=== PATIENT | female | born 1950 ===

== ENCOUNTER 2018-05-15 23:58 | Observation (INO) | payer MEDICARE ==
[2018-05-16 00:28] VITALS: BMI 31.2
--- NOTE | 2018-05-16 01:11 | ED PDOC ---
Arrival/HPI - General Chief Complaint: Headache Time Seen by Provider: 05/16/18 00:16 Historian: Patient - History of Present Illness Narrative History of Present Illness (Text): 05/16/18 01:07 A 67 year old female, whose past medical history includes diabetes, hypertension and osteoporosis, presents to the emergency department complaining of generalized malaise,lower abdominal discomfort.Slight headache.No known fever. Patient states she is also having trouble sleeping and states her is currently in the hospital. Patient denies any visual disturbances, chills, shortness of breath, chest pain, diarrhea, nausea, vomiting, urinary symptoms, back pain, neck pain, headache, dizziness, or any other complaints. PMD: Dr. Trinh Time/Duration: Other (earlier today) Symptom Onset: Gradual Activities at Onset: Light Context: Home Past Medical History - Provider Review Nursing Documentation Reviewed: Yes - Infectious Disease Hx of Infectious Diseases: None - Cardiac Hx Cardiac Disorders: No - Pulmonary Hx Respiratory Disorders: No - Neurological Hx Neurological Disorder: No - HEENT Hx HEENT Disorder: No - Renal Hx Renal Disorder: No - Endocrine/Metabolic Hx Endocrine Disorders: Yes Hx Diabetes Mellitus Type 1: Yes - Hematological/Oncological Hx Blood Disorders: No - Integumentary Hx Dermatological Disorder: No - Musculoskeletal/Rheumatological Hx Musculoskeletal Disorders: Yes Hx Arthritis: Yes Hx Osteomyelitis: Yes - Gastrointestinal Hx Gastrointestinal Disorders: No - Genitourinary/Gynecological Hx Genitourinary Disorders: No - Psychiatric Hx Psychophysiologic Disorder: No Hx Substance Use: No Family/Social History - Physician Review Nursing Documentation Reviewed: Yes Family/Social History: No Known Family HX Smoking Status: Never Smoked Hx Alcohol Use: No Hx Substance Use: No Allergies/Home Meds Allergies/Adverse Reactions: Allergies No Known Allergies Allergy (Verified 05/16/18 00:38) Home Medications: Home Meds Medication Instructions Recorded Confirmed No Known Home Med 05/16/18 05/16/18 Review of Systems - Physician Review All systems were reviewed & negative as marked: Yes - Review of Systems Constitutional: Other (trouble sleeping). absent: Fevers, Night Sweats Eyes: absent: Vision Changes (no visual disturbances) Respiratory: absent: SOB Cardiovascular: absent: Chest Pain Gastrointestinal: Abdominal Pain (abdominal discomfort). absent: Diarrhea, Nausea, Vomiting Musculoskeletal: absent: Back Pain, Neck Pain Neurological: Headache. absent: Dizziness Physical Exam Vital Signs Reviewed: Yes Vital Signs Temp Pulse Resp BP Pulse Ox 05/16/18 00:28 98.1 F 76 18 144/86 98 Temperature: Afebrile Blood Pressure: Normal Pulse: Regular Respiratory Rate: Normal Appearance: Positive for: Well-Appearing, Non-Toxic, Comfortable Pain Distress: None Mental Status: Positive for: Alert and Oriented X 3 - Systems Exam Head: Present: Atraumatic, Normocephalic Pupils: Present: PERRL Extroacular Muscles: Present: EOMI Conjunctiva: Present: Normal Mouth: Present: Moist Mucous Membranes Neck: Present: Normal Range of Motion Respiratory/Chest: Present: Clear to Auscultation, Good Air Exchange. No: Respiratory Distress, Accessory Muscle Use Cardiovascular: Present: Regular Rate and Rhythm, Normal S1, S2. No: Murmurs Abdomen: Present: Tenderness (left lower abdomen), Normal Bowel Sounds. No: Distention, Peritoneal Signs, McBurney's Point Tender, Hernias Back: Present: Normal Inspection Upper Extremity: Present: Normal Inspection. No: Cyanosis, Edema Lower Extremity: Present: Normal Inspection. No: Edema Neurological: Present: GCS=15, CN II-XII Intact, Speech Normal, Motor Func Grossly Intact, Normal Sensory Function Skin: Present: Warm, Dry, Normal Color. No: Rashes Psychiatric: Present: Alert, Oriented x 3, Normal Insight, Normal Concentration Medical Decision Making ED Course and Treatment: 05/16/18 01:10 Impression: 67 year old female presents to the emergency room for generalized malaise,abdominal discomfort. Plan: -- EKG -- Cardiac ISO -- CMP -- Lipase -- CBC -- COAGs -- Chest X-ray -- Reassess and disposition Prior Visits: Notes and results from previous visits were reviewed. Progress Notes: 05/16/18 01:29 EKG: Ordered, reviewed, and independently interpreted the EKG. Rate : 72 BPM Rhythm : NSR Interpretation : Non specific T-wave changes. 05/16/18 03:28 Procedure: Chest X-ray Impression: No acute process. Reviewed by me. 05/16/18 03:55 Procedure: CT abdomen and pelvis with contrast Impression: Acute proximal sigmoid diverticulitis without perforation or abscess formation. Dictator: Dr. Jak Calhoun M.D. 05/16/18 05:[address] Moser who accepts the patient into his service for further observation and requests Dr. Lara on consult. - RAD Interpretation Radiology Orders: 05/16/18 00:51 CHEST PORTABLE [RAD] Stat - Scribe Statement The provider has reviewed the documentation as recorded by the Scribe Johana Eller All medical record entries made by the Scribe were at my direction and personally dictated by me. I have reviewed the chart and agree that the record accurately reflects my personal performance of the history, physical exam, medical decision making, and the department course for this patient. I have also personally directed, reviewed, and agree with the discharge instructions and disposition. Disposition/Present on Arrival - Present on Arrival Any Indicators Present on Arrival: No History of DVT/PE: No History of Uncontrolled Diabetes: No Urinary Catheter: No History of Decub. Ulcer: No History Surgical Site Infection Following: None - Disposition Have Diagnosis and Disposition been Completed?: Yes Diagnosis: Diverticulitis Disposition: HOSPITALIZED Disposition Time: 05:01 Patient Plan: Admission Patient Problems: Current Active Problems Problem Status Onset Diverticulitis Acute Condition: STABLE
[2018-05-16 01:59] LABS: HEMOGLOBIN 13.1 g/dL (12.0-16.0); MEAN CELL VOLUME 89.1 fl (80.0-105.0); MEAN CORPUSCULAR HEMOGLOBIN 29.8 pg (25.0-35.0); MEAN CORPUSCULAR HGB CONC 33.4 g/dl (31.0-37.0); MEAN PLATELET VOLUME 10.8 fl (7.0-11.0); RBC 4.4 10^6/uL (3.5-6.1); RED CELL DISTRIBUTION WIDTH 13.7 % (11.5-14.5); WHITE BLOOD COUNT 11.5 10^3/uL (4.5-11.0)
[2018-05-16 02:01] LABS: INR 1.06; PARTIAL THROMBOPLASTIN TIME 30.3 Seconds (25.1-36.5); PROTHROMBIN TIME 12.1 SECONDS (9.4-12.5)
[2018-05-16 02:03] LABS: ALB/GLOB RATIO 1.3 (1.1-1.8); ALBUMIN 4.3 g/dL (3.0-4.8); ALT/SGPT 32 U/L (7-56); AST/SGOT 25 U/L (14-36); BLOOD UREA NITROGEN 23 mg/dL (7-21); CALCIUM 9.5 mg/dL (8.4-10.5); GFR NON-AFRICAN AMERICAN > 60; LIPASE 101 U/L (23-300)
[2018-05-16 02:14] LABS: TROPONIN I < 0.01 ng/mL
[2018-05-16] MEDS ORDERED: Iohexol 350 MG/100 ML VIAL ONE (02:30)
[2018-05-16] MEDS ORDERED: cefTRIAXone 1 gm 1 GM/100 ML BAG IV STA (04:51)
[2018-05-16] MEDS ORDERED: metroNIDAZOLE IV 500 mg/100 ml 500 MG/100 ML BAG IVPB STA (04:52)
[2018-05-16] MEDS: Sodium Chloride 0.9% 1,000 ML IV SCH (05:10)
--- NOTE | 2018-05-16 08:45 | RAD ---
Date of service: 05/16/2018 PROCEDURE: CHEST RADIOGRAPH, 1 VIEW HISTORY: abdominal pain COMPARISON: None available. FINDINGS: LUNGS: The lungs are well inflated and clear. There is subsegmental atelectasis in the left lower lobe. PLEURA: No pneumothorax or pleural effusion. CARDIOVASCULAR: The heart is normal in size. No aortic atherosclerotic calcifications present. OSSEOUS STRUCTURES: Within normal limits for the patient's age. VISUALIZED UPPER ABDOMEN: Normal. OTHER FINDINGS: None. IMPRESSION: No active pulmonary disease.
--- NOTE | 2018-05-16 09:00 | CARD ---
APPROVED REPORT Date of service: 05/16/2018 EKG Measurement Heart [id number] <Conclusion> Normal sinus rhythm Nonspecific T wave abnormality LAD
--- NOTE | 2018-05-16 09:32 | CT ---
Date of service: 05/16/2018 PROCEDURE: CT Abdomen and Pelvis with contrast HISTORY: abdominal pain COMPARISON: None. TECHNIQUE: Contrast dose: 100 cc of Omni 350 Radiation dose: Total exam DLP = 878.29 mGy-cm. This CT exam was performed using one or more of the following dose reduction techniques: Automated exposure control, adjustment of the mA and/or kV according to patient size, and/or use of iterative reconstruction technique. FINDINGS: LOWER THORAX: Unremarkable. LIVER: Unremarkable. No gross lesion or ductal dilatation. GALLBLADDER AND BILE DUCTS: Unremarkable. PANCREAS: Unremarkable. No gross lesion or ductal dilatation. SPLEEN: Unremarkable. ADRENALS: Unremarkable. No mass. KIDNEYS AND URETERS: Unremarkable. No hydronephrosis. No solid mass. VASCULATURE: Unremarkable. No aortic aneurysm. No aortic atherosclerotic calcification or mural plaque present. BOWEL: There is mural thickening and mesenteric inflammation in the sigmoid colon consistent with acute diverticulitis. There is no evidence of abscess or free air. APPENDIX: Normal appendix. PERITONEUM: Unremarkable. No free fluid. No free air. LYMPH NODES: Unremarkable. No enlarged lymph nodes. BLADDER: Unremarkable. REPRODUCTIVE: Unremarkable. BONES: No acute fracture. OTHER FINDINGS: The report concurs with the preliminary [facility] report IMPRESSION: There is mural thickening and mesenteric inflammation in the sigmoid colon consistent with acute diverticulitis. There is no evidence of abscess or free air.
[2018-05-16] MEDS: metroNIDAZOLE IV 500 mg/100 ml 500 MG/100 ML BAG IVPB SCH ×2 (13:56→21:40)
[2018-05-16] MEDS: Promethazine 6.25 MG/5 ML CUP PO SCH ×2 (13:58→21:40)
--- NOTE | 2018-05-16 14:09 | CP.PCM.CON ---
History of Present Illness - History of Present Illness History of Present Illness: Gastroenterology Fellow/PGY6 Consult Note 67 year old female with PMH of Diabetes, HTN, and osteoporosis presenting with abdominal pain. Patient notes onset of progressive lower abdominal pain leading to ER presentation. Also admits to increased soft stool frequency. Associated subjective fever. Denies nausea, vomiting, hematemesis, constipation, melena, hematochezia, unintentional weight loss, sick contacts, or recent travel/antib iotics. Endorses prior EGD and colonoscopy in last five months to be normal. Family History- denies stomach cancer, colon cancer Social History- denies tobacco, alcohol, illicit drug use Surgical History- none Review of Systems - Review of Systems Review of Systems: 12-point review of systems negative except for as above Past Patient History - Infectious Disease Hx of Infectious Diseases: None - Past Social History Smoking Status: Never Smoked - CARDIAC Hx Cardiac Disorders: Yes Hx Hypertension: Yes - PULMONARY Hx Respiratory Disorders: No - NEUROLOGICAL Hx Neurological Disorder: No - HEENT Hx HEENT Problems: No - RENAL Hx Chronic Kidney Disease: No - ENDOCRINE/METABOLIC Hx Diabetes Mellitus Type 2: Yes - HEMATOLOGICAL/ONCOLOGICAL Hx Blood Disorders: No - INTEGUMENTARY Hx Dermatological Problems: No - MUSCULOSKELETAL/RHEUMATOLOGICAL Hx Musculoskeletal Disorders: Yes Hx Arthritis: Yes Hx Osteoarthritis: Yes - GASTROINTESTINAL Hx Gastrointestinal Disorders: No - GENITOURINARY/GYNECOLOGICAL Hx Genitourinary Disorders: No - PSYCHIATRIC Hx Psychophysiologic Disorder: No - SURGICAL HISTORY Hx Surgeries: No Meds Allergies/Adverse Reactions: Allergies Allergy/AdvReac Type Severity Reaction Status Date / Time No Known Allergies Allergy Verified 05/16/18 00:38 - Medications Medications: Current Medications Sodium Chloride (Sodium Chloride 0.9%) 1,000 mls @ 100 mls/hr IV .Q10H PENDING SALE TO [facility] Last Admin: 05/16/18 05:10 Dose: 100 mls/hr Metronidazole (Flagyl) 500 mg in 100 mls @ 100 mls/hr IVPB Q8 PENDING SALE TO [facility]; Protocol Last Admin: 05/16/18 13:56 Dose: 100 mls/hr Ceftriaxone Sodium (Rocephin 1 Gram Ivpb) 1 gm in 100 mls @ 100 mls/hr IVPB DAILY PENDING SALE TO [facility]; Protocol Promethazine HCl (Phenergan Syrup) 6.25 mg PO BID PENDING SALE TO [facility] Last Admin: 05/16/18 13:58 Dose: 6.25 mg Physical Exam - Constitutional Appears: Non-toxic, No Acute Distress - Head Exam Head Exam: ATRAUMATIC, NORMOCEPHALIC - Eye Exam Eye Exam: EOMI, PERRL. absent: Scleral icterus Pupil Exam: PERRL. absent: Miosis, Mydriatic - ENT Exam ENT Exam: Mucous Membranes Moist, Normal Oropharynx - Neck Exam Neck exam: Positive for: Full Rom, Normal Inspection - Respiratory Exam Respiratory Exam: Clear to Auscultation Bilateral. absent: Rales, Rhonchi, Wheezes - Cardiovascular Exam Cardiovascular Exam: RRR, +S1, +S2. absent: Gallop, Rubs - GI/Abdominal Exam GI & Abdominal Exam: Normal Bowel Sounds, Soft, Tenderness. absent: Distended, Firm, Guarding, Organomegaly, Rebound, Rigid Additional comments: B/L LQ tenderness to palpation - Extremities Exam Extremities exam: Positive for: normal inspection. Negative for: pedal edema - Neurological Exam Neurological exam: Alert - Psychiatric Exam Psychiatric exam: Normal Affect, Normal Mood - Skin Skin Exam: Dry, Intact, Normal Color, Warm Results - Vital Signs Recent Vital Signs: Last Vital Signs Temp 98.3 F 05/16/18 08:37 Pulse 74 05/16/18 08:37 Resp 20 05/16/18 08:37 BP 121/71 05/16/18 08:37 Pulse Ox 94 L 05/16/18 08:37 - Labs Result Diagrams: 05/16/18 01:22 05/16/18 01:22 Labs: Laboratory Results - last 24 hr 05/16/18 05/16/18 05/16/18 01:22 01:22 01:22 WBC 11.5 H RBC 4.40 Hgb 13.1 Hct 39.2 MCV 89.1 MCH 29.8 MCHC 33.4 RDW 13.7 Plt Count 174 MPV 10.8 PT 12.1 INR 1.06 APTT 30.3 Sodium 138 Potassium 4.2 Chloride 102 Carbon Dioxide 26 Anion Gap 14 BUN 23 H Creatinine 0.6 L Est GFR ( Amer) > 60 Est GFR (Non-Af Amer) > 60 POC Glucose (mg/dL) Random Glucose 219 H Calcium 9.5 Total Bilirubin 0.9 AST 25 ALT 32 Alkaline Phosphatase 106 Lactate Dehydrogenase 450 Total Creatine Kinase 91 Troponin I < 0.01 Total Protein 7.6 Albumin 4.3 Globulin 3.3 Albumin/Globulin Ratio 1.3 Lipase 101 05/16/18 05:47 WBC RBC Hgb Hct MCV MCH MCHC RDW Plt Count MPV PT INR APTT Sodium Potassium Chloride Carbon Dioxide Anion Gap BUN Creatinine Est GFR ( Amer) Est GFR (Non-Af Amer) POC Glucose (mg/dL) 120 H Random Glucose Calcium Total Bilirubin AST ALT Alkaline Phosphatase Lactate Dehydrogenase Total Creatine Kinase Troponin I Total Protein Albumin Globulin Albumin/Globulin Ratio Lipase Assessment & Plan - Assessment and Plan (Free Text) Assessment: 67 year old female with PMH of Diabetes, HTN, and osteoporosis presenting with abdominal pain. Active treatment of uncomoplicated sigmoid diverticulitis noted on CT A/P IV contrast. Endorses prior EGD and colonoscopy in last five months to be normal. Plan: -ordered Cdiff, stool culture, O&P -on ceftriaxone and flagyl -liquid diet, advance as tolerated -will require 10-14 day antibiotic course -endorses recent colonoscopy in last 6 months with poor prep -will benefit from outpatient follow up with top closer for re- evaluation and repeat colonoscopy in 6-8 weeks -will follow clinical course
--- NOTE | 2018-05-16 15:45 | CP.PCM.HP ---
<Shoaib Deluna - Last Filed: 05/16/18 15:13> History of Present Illness - History of Present Illness History of Present Illness: H&P for Dr. Moser Service CC: Lower abdominal pain This is a 67 yo F with PMH of DM-1, HTN, osteoporosis, and arthritis who presented with complaint of worsening malaise and lower abdominal pain x2-3 days. As per patient, patient worsening without acute exacerbating factor over the last 2-3 days, and she has noticed increased frequency and softer stools which she likens in consistency to phlegm. Denies melena, bright red blood per rectum, emesis, fevers, chills, or shortness of breath. Does admit to nausea and decreased appetite, but has been able to tolerate PO intake. Additionally complains of headache, and admits to increased stress, as her is currently hospitalized (here at [facility] [place] At time of exam, patient is resting comfortably in bed, talking on a cell phone, not in any acute distress. Of note, in the ED, CT abd/pelvis was obtained that was notable for mural thickening and mesenteric inflammation suggestive of acute sigmoid diverticulitis, without evidence of abscess or perforation. 12 system ROS reviewed and negative except as above. PMH: as above PSH: denies Fam Hx: HTN Soc Hx: Denies tobacco, alcohol, illicits, IVDA PMD: Dr. Trinh Present on Admission - Present on Admission Any Indicators Present on Admission: No History of DVT/PE: No History of Uncontrolled Diabetes: No Urinary Catheter: No Review of Systems - Review of Systems All systems: reviewed and no additional remarkable complaints except (as per HPI) Past Patient History - Infectious Disease Hx of Infectious Diseases: None - Past Social History Smoking Status: Never Smoked - CARDIAC Hx Cardiac Disorders: Yes Hx Hypertension: Yes - PULMONARY Hx Respiratory Disorders: No - NEUROLOGICAL Hx Neurological Disorder: No - HEENT Hx HEENT Problems: No - RENAL Hx Chronic Kidney Disease: No - ENDOCRINE/METABOLIC Hx Diabetes Mellitus Type 2: Yes - HEMATOLOGICAL/ONCOLOGICAL Hx Blood Disorders: No - INTEGUMENTARY Hx Dermatological Problems: No - MUSCULOSKELETAL/RHEUMATOLOGICAL Hx Musculoskeletal Disorders: Yes Hx Arthritis: Yes Hx Osteoarthritis: Yes - GASTROINTESTINAL Hx Gastrointestinal Disorders: No - GENITOURINARY/GYNECOLOGICAL Hx Genitourinary Disorders: No - PSYCHIATRIC Hx Psychophysiologic Disorder: No - SURGICAL HISTORY Hx Surgeries: No Meds Allergies/Adverse Reactions: Allergies Allergy/AdvReac Type Severity Reaction Status Date / Time No Known Allergies Allergy Verified 05/16/18 00:38 Physical Exam - Constitutional Appears: Non-toxic, No Acute Distress - Head Exam Head Exam: ATRAUMATIC, NORMAL INSPECTION, NORMOCEPHALIC - Eye Exam Eye Exam: EOMI, Normal appearance. absent: Conjunctival injection, Scleral icterus Pupil Exam: absent: Irregular, Unequal - ENT Exam ENT Exam: Mucous Membranes Dry - Neck Exam Neck exam: Positive for: Full Rom, Normal Inspection. Negative for: Lymphadenopathy - Respiratory Exam Respiratory Exam: Clear to Auscultation Bilateral, NORMAL BREATHING PATTERN. absent: Accessory Muscle Use, Chest Wall Tenderness, Decreased Breath Sounds, Rales, Rhonchi, Wheezes - Cardiovascular Exam Cardiovascular Exam: REGULAR RHYTHM, RRR, +S1, +S2. absent: Bradycardia, Tachycardia, Irregular Rhythm, JVD, +S4 - GI/Abdominal Exam GI & Abdominal Exam: Normal Bowel Sounds, Soft, Tenderness (diffusely tender to palpation in all quadrants, tenderness in lower quadrants > upper quadrants, no CVA tenderness). absent: Diminished Bowel Sounds, Distended, Firm, Hyperactive Bowel Sounds, Hypoactive Bowel Sounds, Rigid Additional comments: Reports improvement in her pain by laying in left lateral recumbent position - Extremities Exam Extremities exam: Positive for: normal inspection, pedal pulses present. Negative for: calf tenderness, pedal edema - Back Exam Back exam: absent: CVA tenderness (L), CVA tenderness (R) - Neurological Exam Additional comments: awake and alert, moving all extremities spontaneously, following all commands appropriately - Psychiatric Exam Psychiatric exam: Normal Affect, Normal Mood - Skin Skin Exam: Dry, Intact, Normal Color, Warm Results - Vital Signs Recent Vital Signs: Last Vital Signs Temp 98.3 F 05/16/18 08:37 Pulse 74 05/16/18 08:37 Resp 20 05/16/18 08:37 BP 121/71 05/16/18 08:37 Pulse Ox 94 L 05/16/18 08:37 - Labs Result Diagrams: 05/16/18 01:22 05/16/18 01:22 Labs: Laboratory Results - last 24 hr 05/16/18 05/16/18 05/16/18 01:22 01:22 01:22 WBC 11.5 H RBC 4.40 Hgb 13.1 Hct 39.2 MCV 89.1 MCH 29.8 MCHC 33.4 RDW 13.7 Plt Count 174 MPV 10.8 PT 12.1 INR 1.06 APTT 30.3 Sodium 138 Potassium 4.2 Chloride 102 Carbon Dioxide 26 Anion Gap 14 BUN 23 H Creatinine 0.6 L Est GFR ( Amer) > 60 Est GFR (Non-Af Amer) > 60 POC Glucose (mg/dL) Random Glucose 219 H Calcium 9.5 Total Bilirubin 0.9 AST 25 ALT 32 Alkaline Phosphatase 106 Lactate Dehydrogenase 450 Total Creatine Kinase 91 Troponin I < 0.01 Total Protein 7.6 Albumin 4.3 Globulin 3.3 Albumin/Globulin Ratio 1.3 Lipase 101 05/16/18 05:47 WBC RBC Hgb Hct MCV MCH MCHC RDW Plt Count MPV PT INR APTT Sodium Potassium Chloride Carbon Dioxide Anion Gap BUN Creatinine Est GFR ( Amer) Est GFR (Non-Af Amer) POC Glucose (mg/dL) 120 H Random Glucose Calcium Total Bilirubin AST ALT Alkaline Phosphatase Lactate Dehydrogenase Total Creatine Kinase Troponin I Total Protein Albumin Globulin Albumin/Globulin Ratio Lipase Assessment & Plan - Assessment and Plan (Free Text) Assessment: This is a 67 yo F with PMH of DM-1, HTN, osteoporosis, and arthritis who presented with complaint of worsening malaise and lower abdominal pain x2-3 days. Admitted with concern for acute sigmoid diverticulitis. Plan: 1) Generalized abd pain -collitis vs enteritis vs diverticulitis possibly an anxiety component given stress with hospitalized -CT Abd/pelvis notable for acute sigmoid diverticulitis without signs of abscess or perforation -Started on IV Flagyl and Rocephin by ED, will continue IV on floors and convert to PO flagyl and cipro prior to discharge -GI consulted, appreciate their recs -mild leukocytosis without febrile temps; blood cultures obtained, pending results, f/u -Tylenol/Percocet PRN for mild/moderate pain, Promethazine for N/V ppx -Will trial on clear liquid diet, if tolerates advance as tolerated -Hold home crestor for now -NS 100cc/hr to make up for presumed fluid deficit given poor PO intake and dry mucous membranes on exam 2) HTN -currently normotensive, will hold home antiHTN meds at this time 3) Reported hx DM-1 -no home insulins listed in home medications -will start low-dose sliding scale for coverage and fingersticks ACHS will f/u with patient's outpatient pharmacy to confirm home meds Dispo: Med-surg, pending GI recs, pending advancement of diet as tolerated, possible d/c tomorrow FEN: Liquid diet Access: Peripheral IV Consults: GI Ppx: Protonix for GI, SCDs for DVT Patient reviewed and discussed with attending, Dr. Moser <Black Moser S - Last Filed: 05/16/18 21:23> Results - Vital Signs Recent Vital Signs: Last Vital Signs Temp 98.3 F 05/16/18 16:39 Pulse 65 05/16/18 16:39 Resp 20 05/16/18 16:39 BP 118/62 05/16/18 16:39 Pulse Ox 96 05/16/18 16:39 - Labs Result Diagrams: 05/16/18 01:22 05/16/18 01:22 Labs: Laboratory Results - last 24 hr 05/16/18 05/16/18 05/16/18 01:22 01:22 01:22 WBC 11.5 H RBC 4.40 Hgb 13.1 Hct 39.2 MCV 89.1 MCH 29.8 MCHC 33.4 RDW 13.7 Plt Count 174 MPV 10.8 PT 12.1 INR 1.06 APTT 30.3 Sodium 138 Potassium 4.2 Chloride 102 Carbon Dioxide 26 Anion Gap 14 BUN 23 H Creatinine 0.6 L Est GFR ( Amer) > 60 Est GFR (Non-Af Amer) > 60 POC Glucose (mg/dL) Random Glucose 219 H Calcium 9.5 Total Bilirubin 0.9 AST 25 ALT 32 Alkaline Phosphatase 106 Lactate Dehydrogenase 450 Total Creatine Kinase 91 Troponin I < 0.01 Total Protein 7.6 Albumin 4.3 Globulin 3.3 Albumin/Globulin Ratio 1.3 Lipase 101 05/16/18 05:47 WBC RBC Hgb Hct MCV MCH MCHC RDW Plt Count MPV PT INR APTT Sodium Potassium Chloride Carbon Dioxide Anion Gap BUN Creatinine Est GFR ( Amer) Est GFR (Non-Af Amer) POC Glucose (mg/dL) 120 H Random Glucose Calcium Total Bilirubin AST ALT Alkaline Phosphatase Lactate Dehydrogenase Total Creatine Kinase Troponin I Total Protein Albumin Globulin Albumin/Globulin Ratio Lipase Assessment & Plan - Assessment and Plan (Free Text) Plan: Pt seen and examined. I have reviewed the note of the medical insurance clerk and agree with it. I have discussed the assessment and plan with the resident. I have reviewed the patient's labs and medications. She has acute diverticulits. She is on Flagyl and Rocephin. GI will evaluate. Pain controlled on Tylenol and Percocet. Continue with IVF.
[2018-05-17] MEDS: metroNIDAZOLE IV 500 mg/100 ml 500 MG/100 ML BAG IVPB SCH (05:20)
[2018-05-17] MEDS: Sodium Chloride 0.9% 1,000 ML IV SCH (05:21)
[2018-05-17] MEDS ORDERED: Oxycodone/Acetaminophen 5/325 mg Tab PO PRN (07:05)
[2018-05-17 07:36] LABS: BASO # 0.01 K/mm3 (0.0-2.0); BASO % 0.1 % (0.0-3.0); EOS # 0.1 (0.0-0.7); EOS % 0.7 % (1.5-5.0); GRAN # 6.9 (1.4-6.5); GRAN % 65.7 % (50.0-68.0); HEMOGLOBIN 11.9 g/dL (12.0-16.0); LYMPH # 2.9 (1.2-3.4); LYMPH % 27.2 % (22.0-35.0); MEAN CELL VOLUME 89.8 fl (80.0-105.0); MEAN CORPUSCULAR HEMOGLOBIN 30.4 pg (25.0-35.0); MEAN CORPUSCULAR HGB CONC 33.9 g/dl (31.0-37.0); MEAN PLATELET VOLUME 10.6 fl (7.0-11.0); MONO # 0.7 (0.1-0.6); MONO % 6.3 % (1.0-6.0); RBC 3.91 10^6/uL (3.5-6.1); RED CELL DISTRIBUTION WIDTH 14.1 % (11.5-14.5); WHITE BLOOD COUNT 10.5 10^3/uL (4.5-11.0)
[2018-05-17 07:49] LABS: ALB/GLOB RATIO 1.1 (1.1-1.8); ALBUMIN 3.2 g/dL (3.0-4.8); ALT/SGPT 28 U/L (7-56); AST/SGOT 17 U/L (14-36); BLOOD UREA NITROGEN 11 mg/dL (7-21); CALCIUM 8.3 mg/dL (8.4-10.5); GFR NON-AFRICAN AMERICAN > 60
[2018-05-17 08:32] VITALS: BP 121/75; PULSE 60; RESP 19; TEMP 98.1; O2SAT 95
[2018-05-17] MEDS ORDERED: cefTRIAXone 1 gm 1 GM/100 ML BAG IVPB SCH (10:00)
[2018-05-17] MEDS: Promethazine 6.25 MG/5 ML CUP PO SCH (11:13)
--- NOTE | 2018-05-17 12:00 | CP.PCM.PN ---
<Catrachita Berkowitz - Last Filed: 05/17/18 11:57> Subjective - Date & Time of Evaluation Date of Evaluation: 05/17/18 Time of Evaluation: 11:57 - Subjective Subjective: Gastroenterology Fellow/PGY6 Progress Note Patient notes improving abdominal pain. Tolerating liquid diet. Admits to multiple soft stools yesterday. A 12-point review of systems negative except for as above. Objective - Vital Signs/Intake and Output Vital Signs (last 24 hours): Temp Pulse Resp BP Pulse Ox 98.1 F 60 19 121/75 95 05/17/18 08:31 05/17/18 08:31 05/17/18 08:31 05/17/18 08:31 05/17/18 08:31 Intake and Output: 05/17/18 05/17/18 06:59 18:59 Intake Total 840 1200 Balance 840 1200 - Medications Medications: Current Medications Acetaminophen (Tylenol 325mg Tab) 650 mg PO Q6H PRN PRN Reason: Pain, moderate (4-7) Last Admin: 05/16/18 22:23 Dose: 650 mg Metronidazole (Flagyl) 500 mg in 100 mls @ 100 mls/hr IVPB Q8 [facility]ASMY[facility]; Protocol Last Admin: 05/17/18 05:20 Dose: 100 mls/hr Ceftriaxone Sodium (Rocephin 1 Gram Ivpb) 1 gm in 100 mls @ 100 mls/hr IVPB DAILY [facility]; Protocol Oxycodone/Acetaminophen (Percocet 5/325 Mg Tab) 1 tab PO Q6H PRN PRN Reason: Pain, severe (8-10) Stop: 05/20/18 07:06 Pantoprazole Sodium (Protonix Inj) 40 mg IVP DAILY [facility] Last Admin: 05/17/18 11:13 Dose: 40 mg Promethazine HCl (Phenergan Syrup) 6.25 mg PO BID [facility] Last Admin: 05/17/18 11:13 Dose: 6.25 mg - Labs Labs: 05/17/18 07:15 05/17/18 07:15 PT 12.1 SECONDS (9.4-12.5) 05/16/18 01:22 INR 1.06 05/16/18 01:22 APTT 30.3 Seconds (25.1-36.5) 05/16/18 01:22 - Constitutional Appears: Non-toxic, No Acute Distress - Head Exam Head Exam: ATRAUMATIC, NORMOCEPHALIC - Eye Exam Eye Exam: EOMI, PERRL. absent: Scleral icterus Pupil Exam: PERRL. absent: Miosis, Mydriatic - ENT Exam ENT Exam: Mucous Membranes Moist, Normal Oropharynx - Neck Exam Neck Exam: Full ROM, Normal Inspection - Respiratory Exam Respiratory Exam: Clear to Ausculation Bilateral. absent: Rales, Rhonchi, Wheezes - Cardiovascular Exam Cardiovascular Exam: RRR, +S1, +S2. absent: Gallop, Rubs - GI/Abdominal Exam GI & Abdominal Exam: Soft, Tenderness, Normal Bowel Sounds. absent: Distended, Firm, Guarding, Rigid, Organomegaly, Rebound Additional comments: mild B/L LQ discomfort to palpation - Extremities Exam Extremities Exam: Normal Inspection. absent: Pedal Edema - Neurological Exam Neurological Exam: Alert, Awake - Psychiatric Exam Psychiatric exam: Normal Affect, Normal Mood - Skin Skin Exam: Dry, Intact, Normal Color, Warm Assessment and Plan - Assessment and Plan (Free Text) Assessment: 67 year old female with PMH of Diabetes, HTN, and osteoporosis presenting with abdominal pain. Active treatment of uncomplicated sigmoid diverticulitis noted on CT A/P IV contrast. Endorses prior EGD and colonoscopy in last five months to be normal. Plan: -Cdiff negative -diet advanced, tolerated solid foods -will require 10-14 day antibiotic course -endorses recent colonoscopy in last 6 months with poor prep <Jane,Kovil V - Last Filed: 05/18/18 00:03> Objective - Vital Signs/Intake and Output Vital Signs (last 24 hours): Temp Pulse Resp BP Pulse Ox 98.1 F 60 19 121/75 95 05/17/18 08:31 05/17/18 08:31 05/17/18 08:31 05/17/18 08:31 05/17/18 08:31 Intake and Output: 05/17/18 05/18/18 18:59 06:59 Intake Total 1200 Balance 1200 - Labs Labs: 05/17/18 07:15 05/17/18 07:15 PT 12.1 SECONDS (9.4-12.5) 05/16/18 01:22 INR 1.06 05/16/18 01:22 APTT 30.3 Seconds (25.1-36.5) 05/16/18 01:22 Attending/Attestation - Attestation I have personally seen and examined this patient.: Yes I have fully participated in the care of the patient.: Yes I have reviewed all pertinent clinical information, including history, physical exam and plan: Yes Notes (Text): This is an addendum to GI progress report dictated by the GI Fellow.The patient was seen and examined earlier. Medical records, lab studies, imagings were re viewed. Last 24 hours events reviewed. Agreed with the above treatment plan as outlined in GI Fellow 's notes with the addition of the following 05/18/18 00:03
--- NOTE | 2018-05-17 13:01 | CP.PCM.DIS ---
<Shoaib Deluna - Last Filed: 05/17/18 14:54> Provider - Provider Date of Admission: 05/16/18 05:01 Attending physician: Black Moser MD Primary care physician: Saadia Trinh DO Consults: GI: Jane Time Spent in preparation of Discharge (in minutes): 35 Diagnosis - Discharge Diagnosis (1) Diverticulitis Status: Acute Priority: High (2) Diabetes type I Status: Chronic Priority: Medium (3) HTN (hypertension) Status: Chronic Priority: Medium (4) Osteoporosis Status: Chronic Priority: Medium Hospital Course - Lab Results Lab Results: Micro Results 05/17/18 00:50 Stool C. difficile Antigen & Toxins A,B - Final 05/16/18 05:20 Blood Blood Culture - Preliminary NO GROWTH AFTER 24 HOURS 05/16/18 04:53 Blood Blood Culture - Preliminary NO GROWTH AFTER 24 HOURS Most Recent Lab Values WBC 10.5 10^3/uL (4.5-11.0) 05/17/18 07:15 RBC 3.91 10^6/uL (3.5-6.1) 05/17/18 07:15 Hgb 11.9 g/dL (12.0-16.0) L 05/17/18 07:15 Hct 35.1 % (36.0-48.0) L 05/17/18 07:15 MCV 89.8 fl (80.0-105.0) 05/17/18 07:15 MCH 30.4 pg (25.0-35.0) 05/17/18 07:15 MCHC 33.9 g/dl (31.0-37.0) 05/17/18 07:15 RDW 14.1 % (11.5-14.5) 05/17/18 07:15 Plt Count 146 10^3/uL (120.0-450.0) 05/17/18 07:15 MPV 10.6 fl (7.0-11.0) 05/17/18 07:15 Gran % 65.7 % (50.0-68.0) 05/17/18 07:15 Lymph % (Auto) 27.2 % (22.0-35.0) 05/17/18 07:15 [place] % (Auto) 6.3 % (1.0-6.0) H 05/17/18 07:15 Eos % (Auto) 0.7 % (1.5-5.0) L 05/17/18 07:15 Baso % (Auto) 0.1 % (0.0-3.0) 05/17/18 07:15 Gran # 6.90 (1.4-6.5) H 05/17/18 07:15 Lymph # (Auto) 2.9 (1.2-3.4) 05/17/18 07:15 [place] # (Auto) 0.7 (0.1-0.6) H 05/17/18 07:15 Eos # (Auto) 0.1 (0.0-0.7) 05/17/18 07:15 Baso # (Auto) 0.01 K/mm3 (0.0-2.0) 05/17/18 07:15 PT 12.1 SECONDS (9.4-12.5) 05/16/18 01:22 INR 1.06 05/16/18 01:22 APTT 30.3 Seconds (25.1-36.5) 05/16/18 01:22 Sodium 140 mmol/L (132-148) 05/17/18 07:15 Potassium 3.9 mmol/L (3.6-5.0) 05/17/18 07:15 Chloride 108 mmol/L (98-107) H 05/17/18 07:15 Carbon Dioxide 27 mmol/L (21-33) 05/17/18 07:15 Anion Gap 9 (10-20) L 05/17/18 07:15 BUN 11 mg/dL (7-21) 05/17/18 07:15 Creatinine 0.7 mg/dl (0.7-1.2) 05/17/18 07:15 Est GFR ( Amer) > 60 05/17/18 07:15 Est GFR (Non-Af Amer) > 60 05/17/18 07:15 POC Glucose (mg/dL) 120 mg/dL (65-110) H 05/16/18 05:47 Random Glucose 143 mg/dL (70-110) H 05/17/18 07:15 Calcium 8.3 mg/dL (8.4-10.5) L 05/17/18 07:15 Total Bilirubin 0.9 mg/dL (0.2-1.3) 05/17/18 07:15 AST 17 U/L (14-36) 05/17/18 07:15 ALT 28 U/L (7-56) 05/17/18 07:15 Alkaline Phosphatase 74 U/L (38-126) 05/17/18 07:15 Lactate Dehydrogenase 450 U/L (333-699) 05/16/18 01:22 Total Creatine Kinase 91 U/L (35-230) 05/16/18 01:22 Troponin I < 0.01 ng/mL 05/16/18 01:22 Total Protein 6.2 g/dL (5.8-8.3) 05/17/18 07:15 Albumin 3.2 g/dL (3.0-4.8) 05/17/18 07:15 Globulin 3.0 gm/dL 05/17/18 07:15 Albumin/Globulin Ratio 1.1 (1.1-1.8) 05/17/18 07:15 Lipase 101 U/L (23-300) 05/16/18 01:22 - Hospital Course Hospital Course: Discharge Summary for Dr. Moser Service This is a 67 yo F with PMH of DM-1, HTN, osteoporosis, and arthritis who presented with complaint of worsening malaise and lower abdominal pain x2-3 days. Admitted with concern for acute sigmoid diverticulitis. While here, the patient was also seen by GI. As per GI, f/u stool studies, C. diff, and Ova & Parasites testing; 10-14 days of antibiotics and follow up with GI as outpatient in 6-8 weeks to obtain colonoscopy. Today, patient is resting comfortably in bed. Denies acute or diffuse abdominal pain, but still has some tenderness to palpation lateral to the left quadrants. Denies nausea or vomiting, and reports last bowel movement was normal. Denies dysuria or diarrhea, denies melena or bright red blood per rectum. Patient was given a prescription for Flagyl and Augmentin for 8 days, to complete a total antibiotic course of 10 days. She was also instructed to resume her home medications as prescribed, to follow up with Dr. Moser within 1 week of discharge, and to follow up with GI as explained. She expressed understanding and agreement. Patient was then discharged to home. Reviewed and discussed with attending, Dr. Moser. Discharge Exam - Head Exam Head Exam: ATRAUMATIC, NORMOCEPHALIC - Additional Findings Additional findings: - Constitutional Appears: Non-toxic, No Acute Distress - Head Exam Head Exam: ATRAUMATIC, NORMAL INSPECTION, NORMOCEPHALIC - Eye Exam Eye Exam: EOMI, Normal appearance. absent: Conjunctival injection, Scleral icterus Pupil Exam: absent: Irregular, Unequal - ENT Exam ENT Exam: Mucous Membranes Moist - Neck Exam Neck exam: Positive for: Full Rom, Normal Inspection. Negative for: Lymphadenopathy - Respiratory Exam Respiratory Exam: Clear to Auscultation Bilateral, NORMAL BREATHING PATTERN. absent: Accessory Muscle Use, Chest Wall Tenderness, Decreased Breath Sounds, Rales, Rhonchi, Wheezes - Cardiovascular Exam Cardiovascular Exam: REGULAR RHYTHM, RRR, +S1, +S2. absent: Bradycardia, Tachycardia, Irregular Rhythm, JVD, +S4 - GI/Abdominal Exam GI & Abdominal Exam: Normal Bowel Sounds, Soft, Tenderness (tenderness to left flank, improved compared to yesterday). absent: Diminished Bowel Sounds, Distended, Firm, Hyperactive Bowel Sounds, Hypoactive Bowel Sounds, Rigid - Extremities Exam Extremities exam: Positive for: normal inspection, pedal pulses present. Negative for: calf tenderness, pedal edema - Back Exam Back exam: absent: CVA tenderness (L), CVA tenderness (R) - Neurological Exam awake and alert, moving all extremities spontaneously, following all commands appropriately - Psychiatric Exam Psychiatric exam: Normal Affect, Normal Mood - Skin Skin Exam: Dry, Intact, Normal Color, Warm Discharge Plan - Discharge Medications Prescriptions: Amoxicillin/Clavulanate [Augmentin 875 MG-125 MG] 1 tab PO BID #16 tab Metronidazole [Flagyl] 500 mg PO QID #32 tab - Follow Up Plan Condition: STABLE Disposition: HOME/ ROUTINE Instructions: Diverticulitis (DC), Diverticulitis Additional Instructions: PLEASE FOLLOW UP WITH DR MOSER IN 1 WEEK. TAKE ALL MEDICATIONS PRESCRIBED. Referrals: Black Moser MD [Staff Provider] - Palak Lara MD [Medical Doctor] - <Black Moser - Last Filed: 05/17/18 15:56> Provider - Provider Date of Admission: 05/16/18 05:01 Attending physician: Black Moser MD Primary care physician: Saadia Paniagua [facility] Course - Lab Results Lab Results: Micro Results 05/17/18 00:50 Stool C. difficile Antigen & Toxins A,B - Final 05/16/18 05:20 Blood Blood Culture - Preliminary NO GROWTH AFTER 24 HOURS 05/16/18 04:53 Blood Blood Culture - Preliminary NO GROWTH AFTER 24 HOURS Most Recent Lab Values WBC 10.5 10^3/uL (4.5-11.0) 05/17/18 07:15 RBC 3.91 10^6/uL (3.5-6.1) 05/17/18 07:15 Hgb 11.9 g/dL (12.0-16.0) L 05/17/18 07:15 Hct 35.1 % (36.0-48.0) L 05/17/18 07:15 MCV 89.8 fl (80.0-105.0) 05/17/18 07:15 MCH 30.4 pg (25.0-35.0) 05/17/18 07:15 MCHC 33.9 g/dl (31.0-37.0) 05/17/18 07:15 RDW 14.1 % (11.5-14.5) 05/17/18 07:15 Plt Count 146 10^3/uL (120.0-450.0) 05/17/18 07:15 MPV 10.6 fl (7.0-11.0) 05/17/18 07:15 Gran % 65.7 % (50.0-68.0) 05/17/18 07:15 Lymph % (Auto) 27.2 % (22.0-35.0) 05/17/18 07:15 [place] % (Auto) 6.3 % (1.0-6.0) H 05/17/18 07:15 Eos % (Auto) 0.7 % (1.5-5.0) L 05/17/18 07:15 Baso % (Auto) 0.1 % (0.0-3.0) 05/17/18 07:15 Gran # 6.90 (1.4-6.5) H 05/17/18 07:15 Lymph # (Auto) 2.9 (1.2-3.4) 05/17/18 07:15 [place] # (Auto) 0.7 (0.1-0.6) H 05/17/18 07:15 Eos # (Auto) 0.1 (0.0-0.7) 05/17/18 07:15 Baso # (Auto) 0.01 K/mm3 (0.0-2.0) 05/17/18 07:15 PT 12.1 SECONDS (9.4-12.5) 05/16/18 01:22 INR 1.06 05/16/18 01:22 APTT 30.3 Seconds (25.1-36.5) 05/16/18 01:22 Sodium 140 mmol/L (132-148) 05/17/18 07:15 Potassium 3.9 mmol/L (3.6-5.0) 05/17/18 07:15 Chloride 108 mmol/L (98-107) H 05/17/18 07:15 Carbon Dioxide 27 mmol/L (21-33) 05/17/18 07:15 Anion Gap 9 (10-20) L 05/17/18 07:15 BUN 11 mg/dL (7-21) 05/17/18 07:15 Creatinine 0.7 mg/dl (0.7-1.2) 05/17/18 07:15 Est GFR ( Amer) > 60 05/17/18 07:15 Est GFR (Non-Af Amer) > 60 05/17/18 07:15 POC Glucose (mg/dL) 120 mg/dL (65-110) H 05/16/18 05:47 Random Glucose 143 mg/dL (70-110) H 05/17/18 07:15 Calcium 8.3 mg/dL (8.4-10.5) L 05/17/18 07:15 Total Bilirubin 0.9 mg/dL (0.2-1.3) 05/17/18 07:15 AST 17 U/L (14-36) 05/17/18 07:15 ALT 28 U/L (7-56) 05/17/18 07:15 Alkaline Phosphatase 74 U/L (38-126) 05/17/18 07:15 Lactate Dehydrogenase 450 U/L (333-699) 05/16/18 01:22 Total Creatine Kinase 91 U/L (35-230) 11/19/18 01:22 Troponin I < 0.01 ng/mL 05/16/18 01:22 Total Protein 6.2 g/dL (5.8-8.3) 05/17/18 07:15 Albumin 3.2 g/dL (3.0-4.8) 05/17/18 07:15 Globulin 3.0 gm/dL 05/17/18 07:15 Albumin/Globulin Ratio 1.1 (1.1-1.8) 05/17/18 07:15 Lipase 101 U/L (23-300) 05/16/18 01:22 - Hospital Course Hospital Course: Pt seen and examined. I have reviewed the note of the medical technical writer and agree with it. I have discussed the assessment and plan with the resident. I have reviewed the patient's labs and medications. Pt with acute sigmoid diverticulitis. She is feeling better. She is able to tolerate PO. She will be discharged home. She will f/u with PMD. She will finish PO Abx.
== END 2018-05-17 14:14 | disposition home or self-care (01) ==
LOC: ED 23:58 → ERH 05-16 05:01 → INTOOBSV 05-16 05:01 → ERH 05-16 05:30 → 3RSO 05-16 06:34
PROVIDERS: ADMIT Internal Medicine Nephrology; ATTEND Internal Medicine Nephrology
DX: K57.32 Diverticulitis of large intestine without perforation or abscess without bleeding (principal); E10.9 Type 1 diabetes mellitus without complications; I10 Essential (primary) hypertension; M81.0 Age-related osteoporosis without current pathological fracture
CPT/HCPCS: 36415; 71045; 74177; 80053; 82550; 82948; 83615; 83690; 84484; 85025; 85027; 85610; 85730; 87040; 87045; 87177; 87209; 87324; 93005; 96365; 96366; 96367; 96375; 99285; C9113; G0378; J0696; J7030; Q9967

== ENCOUNTER 2018-07-23 16:03 | Emergency (ER) | payer MEDICARE ==
[2018-07-23 16:07] VITALS: BMI 31.2
== END 2018-07-23 20:21 | disposition left against medical advice (07) ==
LOC: ED 16:03
DX: Z02.89 Encounter for other administrative examinations (principal); R50.9 Fever, unspecified